=== PATIENT | male | born 1935 | race Caucasian/White ===

== ENCOUNTER 2018-04-01 20:35 | Emergency (ER) | payer MEDICARE, OTHER ==
[~2018-04-01] VITALS: Ht 175.3 cm; Wt 48.0 kg
[~2018-04-01 20:35] MED LIST: ACET325T14 PO; CIPR500T87 PO
[2018-04-01 20:55] VITALS: BP 117/68
[2018-04-01] MEDS ORDERED: METOCLOPRAMIDE 5 MG/ML, 2ML IVPush ONE (21:30)
[2018-04-01] MEDS ORDERED: SODIUM CHLORIDE FLUSH 10ML SYR IVF ONE (21:30)
[2018-04-01] MEDS ORDERED: FAMOTIDINE 20 MG/2 ML IVP ONE (21:30)
[2018-04-01] MEDS ORDERED: SODIUM CHLORIDE 0.9% 1,000ML IVBOLUS ONE (21:30)
[2018-04-01 21:44] LABS: BASOPHILS # (AUTO) 0.05 x10^3/uL (0-0.1); BASOPHILS % (AUTO) 1 % (0-1); EOSINOPHILS # (AUTO) 0.11 x10^3/uL (0-0.4); EOSINOPHILS % (AUTO) 1 % (1-7); LYMPHOCYTES # (AUTO) 1.53 x10^3/uL (1-3.4); LYMPHOCYTES % (AUTO) 18 % (22-44); MD NO; MEAN CORPUSCULAR HEMOGLOBIN 29.1 pg (27.5-34.5); MEAN CORPUSCULAR HGB CONC 32.8 g/dL (33.2-36.2); MEAN CORPUSCULAR VOLUME 88.8 fL (81-97); MEAN PLATELET VOLUME 7.5 fL (7.4-10.4); MONOCYTES # (AUTO) 0.77 x10^3/uL (0.2-0.8); MONOCYTES % (AUTO) 9 % (2-9); NEUTROPHILS # (AUTO) 5.94 x10^3/uL (1.8-6.8); NEUTROPHILS % (AUTO) 71 % (42-75); PLATELET COUNT 403 x10^3/uL (130-400); RED BLOOD COUNT 4.87 x10^6/uL (4.38-5.82); RED CELL DISTRIBUTION WIDTH 15.7 % (9.4-14.8)
[2018-04-01] MEDS ORDERED: FAMOTIDINE 20 MG/2 ML ONE (21:50)
[2018-04-01 21:57] LABS: ANION GAP 8 mmol/L (5-15); CALCIUM 8.8 mg/dL (8.5-10.1); CHLORIDE 104 mmol/L (98-107)
[2018-04-01 22:02] LABS: ALANINE AMINOTRANSFERASE 12 U/L (12-78); ALKALINE PHOSPHATASE 71 U/L (45-117); BILIRUBIN,TOTAL 0.4 mg/dL (0.2-1.0); CREATININE 1.56 mg/dL (0.7-1.3); TOTAL PROTEIN 7.2 g/dL (6.4-8.2); TROPONIN I 0.068 ng/mL (0.000-0.045)
[2018-04-01] MEDS ORDERED: ONDANSETRON ODT 4 MG ONE (22:12)
[2018-04-01] MEDS ORDERED: ASPIRIN 325 MG TABLET ONE (22:12)
[2018-04-01] MEDS ORDERED: ASPI1TAB31 PO (22:27)
[2018-04-01] MEDS ORDERED: ONDANSETRON ODT 4 MG PO ONE (22:30)
[2018-04-01] MEDS ORDERED: ASPIRIN 325 MG TABLET PO ONE (22:30)
== END 2018-04-02 00:30 | disposition home or self-care (01) ==
LOC: ED 22:36 → SUATTDRO 22:43 → ED 04-02 00:30
PROVIDERS: ATTEND Hospitalist
DX: E86.0 Dehydration (principal); R11.2 Nausea with vomiting, unspecified; E86.9 Volume depletion, unspecified; I21.9 Acute myocardial infarction, unspecified; Z85.51 Personal history of malignant neoplasm of bladder; F17.200 Nicotine dependence, unspecified, uncomplicated
CPT/HCPCS: 36415; 74022; 80053; 83690; 84484; 85025; 93005; 96374; 99285; J7030; Q0162; S0028